=== PATIENT | female | born 1985 ===

== ENCOUNTER 2019-05-28 13:15 | Inpatient (IN) | payer OTHER ==
[~2019-05-28] VITALS: Ht 172.7 cm; Wt 3.6 kg
[~2019-05-28 13:15] MED LIST: IRON1 TA1 PO
== END 2019-06-01 13:15 | disposition home or self-care (01) | DRG 785 ==
LOC: O/R 13:15 → OB/GYN 05-29 08:30 → O/R 05-29 08:30 → OB/GYN 05-29 13:15
PROVIDERS: ADMIT Obstetrics & Gynecology
PROC: 0UL70ZZ Occlusion of Bilateral Fallopian Tubes, Open Approach (ICD-10-PCS; 2019-05-29)
PROC: 4A1HXCZ Monitoring of Products of Conception, Cardiac Rate, External Approach (ICD-10-PCS; 2019-05-29)
PROC: 10D00Z1 Extraction of Products of Conception, Low, Open Approach (ICD-10-PCS; principal; 2019-05-29 10:00)
DX: O82 Encounter for cesarean delivery without indication (principal); Z3A.39 39 weeks gestation of pregnancy; Z37.0 Single live birth; Z30.2 Encounter for sterilization